=== PATIENT | male | born 1980 | race Caucasian/White ===

== ENCOUNTER 2024-10-15 20:34 | Outpatient (CLI) | payer BC, SELFPAY | END 2024-10-15 20:35 | disposition home or self-care (01) | LOC: SLEEP 20:39 | PROVIDERS: PCP Student in an Organized Health Care Education/Training Program; Visit Provider Student in an Organized Health Care Education/Training Program | DX: G47.33 Obstructive sleep apnea (adult) (pediatric) (principal) | CPT/HCPCS: 95811 ==